=== PATIENT | male | born 1990 | race Caucasian/White ===

== ENCOUNTER 2018-10-13 17:25 | Emergency (ER) | payer SELFPAY, MEDICAID ==
[~2018-10-13] VITALS: Ht 182.9 cm; Wt 80.7 kg
--- NOTE | 2018-10-13 17:43 | Emergency Room Report ---
History of Present Illness General Chief Complaint: Medical Clearance Source: Patient Present Illness HPI 28-year-old male presents to the emergency department for medical clearance for incarceration he reports that he has an itchy rash in his groin area which usually resolves with triamcinolone cream. Patient also reports history of palpitations for many years and intermittent chest pains. Patient also reports IV drug use. He denies pain at this time denies fevers, chills, CP, nausea, vomiting or diarrhea. Patient does report some mild constipation. He denies abscesses, open wounds or bleeding. He denies hitting his head or having a loss of consciousness. He denies pain. Has no other medical complaints at this time. Allergies: Coded Allergies: No Known Allergies (Unverified , 10/13/18) Patient History Past Medical History: see triage record Past Surgical History: none Pertinent Family History: none Reviewed Nursing Documentation: PMH: Agreed; PSxH: Agreed Nursing Documentation-PMH Past Medical History: No History, Except For Hx Cardiac Problems: Yes - heart murmur Review of Systems All Other Systems: negative except mentioned in HPI Physical Exam Vital Signs Date Time Temp Pulse Resp B/P (MAP) Pulse Ox O2 Delivery O2 Flow Rate FiO2 10/13/18 17:38 97.9 96 16 113/76 96 Room Air Sp02 EP Interpretation: reviewed, normal General Appearance: no apparent distress, alert, GCS 15, non-toxic Head: normocephalic, atraumatic Eyes: bilateral eye normal inspection, bilateral eye PERRL ENT: hearing grossly normal, normal voice Neck: full range of motion Respiratory: lungs clear, normal breath sounds, speaking full sentences Cardiovascular #1: regular rate, rhythm, normal capillary refill Cardiovascular #2: 2+ radial (R), 2+ radial (L) Gastrointestinal: normal bowel sounds, non tender, soft Rectal: deferred Genitourinary: deferred - by pt. Musculoskeletal: back normal, gait/station normal, normal range of motion, non- tender Neurologic: alert, oriented x3, responsive, motor strength/tone normal, sensory intact, speech normal, grossly normal Psychiatric: judgement/insight normal Skin: normal color, no rash, warm/dry, well hydrated Lymphatic: no adenopathy Medical Decision Making PA Attestation Dr. Carlson is my supervising Physician whom patient management has been discussed with. Diagnostic Impression: Primary Impression: Medical clearance for incarceration ER Course 28-year-old male presents to the emergency department for medical clearance for incarceration he reports that he has an itchy rash in his groin area which usually resolves with triamcinolone cream. Patient also reports history of palpitations for many years and intermittent chest pains. Patient also reports IV drug use. He denies pain at this time denies fevers, chills, CP, nausea, vomiting or diarrhea. Patient does report some mild constipation. He denies abscesses, open wounds or bleeding. He denies hitting his head or having a loss of consciousness. He denies pain. Has no other medical complaints at this time. Ddx considered but are not limited to Head Trauma, [place], ACS, SI/HI, URI, SAH, Fractures, Dislocations, Tazer barbs, Abrasions. Vital signs: are WNL, pt. is afebrile H&PE are most consistent with: normal limited physical examination. ORDERS: none required at this time, the diagnosis is clinical ED INTERVENTIONS: None required at this time. DISCHARGE: At this time pt. is stable for d/c to law enforcement. Will provide printed patient care instructions, and any necessary prescriptions. Care plan and follow up instructions have been discussed with the patient prior to discharge. Last Vital Signs Date Time Temp Pulse Resp B/P (MAP) Pulse Ox O2 Delivery O2 Flow Rate FiO2 10/13/18 17:38 97.9 96 16 113/76 96 Room Air Disposition: HOME, SELF-CARE Condition: Stable Scripts Triamcinolone Acetonide (Triamcinolone Acetonide) 15 Gm Oint...g. 1 APPLIC TOPIC BID, #15 GM 1 Refill Prov: Jessica Rangel 10/13/18 Patient Instructions: Triamcinolone skin cream, ointment, lotion, or aerosol Additional Instructions: Take medications as directed. Follow up with a Primary Care Provider in 3-5 days, even if your symptoms have resolved. --Please review list of primary care clinics, if you do not already have a primary care provider Return sooner to ED if new symptoms occur, or current symptoms become worse. - Please note that this Emergency Department Report was dictated using [employer] specialist technology software, occasionally this can lead to erroneous entry secondary to interpretation by the dictation equipment. Jessica Rangel Oct 13, 2018 17:43
[2018-10-13 17:45] VITALS: BP 113/76
--- NOTE | 2018-10-13 17:45 | NUR ---
ED Nurse Note: pt brought in by sheriff yang, c/o rash in ingroin area for couple of days, pt states he puts cream and it usually resolves, states itching but denies pain at this time. Pt AA&ox4, gcs=15, skin warm and dry, resp even and unlabored, -n/v/d, ambulates w/ steady gait. will cont monitor.
[2018-10-13] MEDS ORDERED: KENALOG1 APPLIC TOPIC (17:59)
[2018-10-13 18:27] VITALS: BP 118/76
--- NOTE | 2018-10-13 18:27 | NUR ---
ED Nurse Note: pt discharge instruction provided w/ prescription given to [place], pt education done via discussion and handout, pt advised to follow up w/ skilled nursing medical staff or PCP, pt verbalized understanding and agrees with plan, pt wrist band removed, pt ambulatory w/ steady gait, vss, all belongings left w/ pt.
== END 2018-10-13 18:40 | disposition home or self-care (01) ==
LOC: EMR 17:53
DX: Z02.89 Encounter for other administrative examinations (principal); R21 Rash and other nonspecific skin eruption
CPT/HCPCS: 99283